=== PATIENT | male | born 1950 | race Caucasian/White ===

== ENCOUNTER → 2017-11-04 | Outpatient (CLI) | payer OTHER ==
--- NOTE | 2017-11-04 13:03 | US ---
EXAMINATION TYPE: US kidneys/renal and bladder DATE OF EXAM: 11/04/2017 COMPARISON: CT abdomen and pelvis 10/17/2014 CLINICAL HISTORY: Calculus of kidney N20.0. EXAM MEASUREMENTS: Right Kidney: 9.7 x 4.8 x 4.1 cm Left Kidney: 10.2 x 5.3 x 5.4 cm Right Kidney: No hydronephrosis. Echogenic foci visualized measuring 0.6 cm. Cystic area visualized m easuring 1.0 x 0.6 x 0.6 cm Left Kidney: Mild fullness of renal pelvis and calyces. Multiple echogenic foci visualized, largest v isualized measuring 0.6 cm Bladder: wnl Bilateral Jets seen: Bilateral jets visualized, however left not as prominent as the right Technologist identifies 6 mm nonshadowing hyperechoic focus lower pole level right kidney could refle ct new nonobstructing calculus. Technologist north simple appearing subcentimeter cyst upper to mid p ole level right kidney. There is suspected mild left-sided pyelocaliectasis new from CT. Some scatter ed nonshadowing hyperechoic foci could reflect small nonobstructing renal calculi new from prior CT. IMPRESSION: New mild left-sided hydronephrosis is felt present. Cannot exclude new small nonobstructing renal nunu culi. Consider CT correlation.
== END | disposition home or self-care (01) ==
LOC: RADUSWWP 10:55
DX: N13.2 Hydronephrosis with renal and ureteral calculous obstruction (principal)
CPT/HCPCS: 76770